=== PATIENT | female | born 1975 | race Caucasian/White ===

== ENCOUNTER 2021-10-12 01:59 | Emergency (ER) | payer BC ==
[~2021-10-12] VITALS: Ht 165.1 cm; Wt 72.6 kg
[2021-10-12 02:21] LABS: BASO # 0.1 10*3/uL (0.0-0.1); BASO % 1.1 % (0.0-1.0); EOS # 0.2 10*3/uL (0.0-0.4); EOS % 2.7 % (1.0-4.0); LYMPH # 3.6 10*3/uL (1.3-4.4); LYMPH % 48.8 % (27.0-41.0); MEAN CELL VOLUME 89.4 fl (81.0-99.0); MEAN CORPUSCULAR HGB CONC 35.8 g/dl (33.0-37.0); MEAN PLATELET VOLUME 8.5 fl (9.6-12.3); MONO # 0.6 10*3/uL (0.1-1.0); MONO % 7.9 % (3.0-9.0); NEUT # 2.9 10*3/uL (2.3-7.9); NEUT % 39.4 % (47.0-73.0); PLATELET COUNT AUTOMATED 417 10*3/uL (130-400); RED BLOOD COUNT 4.25 10*6/uL (4.10-5.10); RED CELL DISTRI WIDTH 11.9 % (0-14.5); WHITE BLOOD COUNT 7.4 10*3/uL (4.8-10.8)
[2021-10-12 02:37] LABS: ALKALINE PHOSPHATASE 66 U/L (45-117); BUN 7 mg/dl (7-24); CHLORIDE 100 mmol/L (98-107); CREATININE 0.61 mg/dL (0.55-1.02); POTASSIUM 3.4 mmol/L (3.5-5.1); SGOT/AST 22 IU/L (3-35); SGPT/ALT 23 U/L (12-78); SODIUM 131 mmol/L (136-145); TOTAL PROTEIN 6.7 gm/dL (6.4-8.2)
== END 2021-10-12 03:30 | disposition home or self-care (01) ==
LOC: ED 01:59
PROVIDERS: Internal Medicine
DX: J06.9 Acute upper respiratory infection, unspecified (principal); Z20.822 Contact with and (suspected) exposure to COVID-19; Z88.2 Allergy status to sulfonamides; Z88.0 Allergy status to penicillin

== ENCOUNTER → 2022-10-11 | Outpatient (CLI) | payer BC | END | disposition home or self-care (01) | LOC: US 00:31 | PROVIDERS: ATTEND Nurse Practitioner Primary Care | DX: R10.2 Pelvic and perineal pain (principal) ==

== ENCOUNTER → 2024-11-26 | Outpatient (CLI) | payer BC ==
[2024-11-26 07:56] LABS: BASO # 0.1 10*3/uL (0.0-0.1); BASO % 1.0 % (0.0-1.0); EOS # 0.3 10*3/uL (0.0-0.4); EOS % 4.2 % (1.0-4.0); MEAN CELL VOLUME 95.6 fl (81.0-99.0); MEAN CORPUSCULAR HGB 31.5 pg (27.0-31.0); MEAN PLATELET VOLUME 8.7 fl (9.6-12.3); MONO # 0.5 10*3/uL (0.1-1.0); MONO % 7.9 % (3.0-9.0); NEUT # 3.2 10*3/uL (2.3-7.9); NEUT % 54.3 % (47.0-73.0); NUCLEATED RED BLOOD CELL 0.0 % (0.0-0.0); NUCLEATED RED BLOOD CELL 0.0 10*3/uL (0.0-0.0); PLATELET COUNT AUTOMATED 439 10*3/uL (130-400); RED CELL DISTRI WIDTH 12.1 % (0-14.5)
[2024-11-26 08:16] LABS: ACT PARTIAL THROMBO TIME 28.9 SECONDS (20.0-32.1)
[2024-11-26 08:33] LABS: BUN 6 mg/dl (9-23); LDL CHOLESTEROL 105 mg/dL (9-159); SGPT/ALT 23 U/L (5-49)
== END | disposition home or self-care (01) ==
LOC: LAB 07:25
PROVIDERS: Nurse Practitioner Primary Care; ATTEND Orthopaedic Surgery Orthopaedic Surgery of the Spine
DX: I10 Essential (primary) hypertension (principal); E78.2 Mixed hyperlipidemia; I48.91 Unspecified atrial fibrillation